=== PATIENT | female | born 1975 | race African-American/Black ===

== ENCOUNTER 2018-04-15 09:26 | Outpatient (CLI) | payer MEDICARE, MEDICAID ==
--- NOTE | 2018-04-15 11:11 | MRI ---
MRI LUMBAR SPINE WITHOUT CONTRAST: HISTORY: Spinal stenosis, lumbar region. COMPARISON: None. TECHNIQUE: MRI of the lumbar spine is performed without intravenous Gadolinium administration. Multisequential, multiplanar imaging is performed. FINDINGS: Appropriate T1 marrow signal intensity of the lumbar vertebrae. Vertebral body height is maintained. No fracture. There is mild STIR hyperintensity involving the left and right posterior elements at L5 which is presumed to be due to degenerative change/mechanical stresses. No spondylolisthesis or s pondylosis. Symmetric signal intensity of the psoas muscles. Appropriate signal intensity of the visualized laila d organs. Conus medullaris terminates at the inferior aspect of L1. T12-L1: Adequate disk hydration. No significant central canal stenosis or foraminal narrowing. L1-L2: Adequate disk hydration. No significant central canal stenosis or foraminal narrowing. L2-L3: Adequate disk hydration. No significant central canal stenosis. Neural foramen are patent. L3-L4: Adequate disk hydration. No significant central canal stenosis or foraminal narrowing. L4-L5: Adequate disk hydration. Minimal generalized disk bugle. There is ligamentum flavum thicken ing and facet hypertrophy. Minimal central canal stenosis. Neural foramina are patent bilaterally. L5-S1: Adequate disk hydration. No significant central canal stenosis. Foramina are patent bilater ally. There is mild degenerative change at T11-T12, incompletely evaluated. Based on the sagittal images, there is mild stenosis. IMPRESSION: No significant central canal stenosis or foraminal narrowing throughout the lumbar spine. Additional findings at T11-T12 as described above. POS: [facility]
== END 2018-04-15 09:27 | disposition home or self-care (01) ==
LOC: SCSMRI 09:26
PROVIDERS: ATTEND Orthopaedic Surgery Hand Surgery
DX: M48.061 Spinal stenosis, lumbar region without neurogenic claudication (principal); M47.894 Other spondylosis, thoracic region
CPT/HCPCS: 72148

== ENCOUNTER 2018-04-26 15:45 | Outpatient (CLI) | payer MEDICARE, MEDICAID ==
--- NOTE | 2018-04-26 18:11 | MRI ---
MRI OF BRAIN WITH AND WITHOUT IV CONTRAST: 04/26/18 HISTORY: Generalized pain all over body. History of fall. Systemic sclerosis. COMPARISON: CT head on 04/07/18. FINDINGS: No signal abnormalities are seen throughout the brain. There is no evidence of an acute infarction. N o abnormal areas of enhancement are seen after the administration of intravenous contrast. Septum pellucidum and third ventricle are in the midline. Ventricular system is normal in size, shape and position. Incidental note is made of an empty sella turcica. Grossly normal flow voids are demonstrated at the base of the brain. Minimal mucosal thickening is se en in the bilateral ethmoidal air cells and left sphenoid sinus. Orbits and skull base have a normal MRI appearance. There is decreased signal intensity within the region of the right petrous apex. Ther e is increased T2 weighted signal intensity present. Recent CT scan demonstrates pneumatization of th e petrous apex with evidence mucosal thickening in this region likely accounting for findings on MRI. The orbits and remainder of the skull base have a normal MRI appearance. IMPRESSION: 1. No acute intracranial abnormality is demonstrated. 2. Minimal sinus disease. POS: [facility]
== END 2018-04-26 15:46 | disposition home or self-care (01) ==
LOC: MRI 15:45
PROVIDERS: ATTEND Orthopaedic Surgery Hand Surgery
DX: M34.9 Systemic sclerosis, unspecified (principal); M48.02 Spinal stenosis, cervical region; J32.9 Chronic sinusitis, unspecified
CPT/HCPCS: 70553

== ENCOUNTER 2018-05-26 08:41 | Outpatient (CLI) | payer MEDICARE, MEDICAID ==
[2018-05-26 11:30] LABS: #Eosinphils 0.1 thou/uL (0.0-0.7); #Lymphocytes 2.6 thou/uL (1.20-3.40); #Monocytes 0.5 thou/uL (0.11-0.59); #Neutrophils 2.5 thou/uL (1.40-6.50); %Basophils 0.5 % (0.0-1.0); %Eosinophils 2.3 % (0.0-10.0); %Lymphocytes 45.4 % (21.0-51.0); %Monocytes 8.1 % (0.0-10.0); %Neutrophils 43.7 % (42.0-75.0); Hemoglobin 13.9 g/dL (12.0-16.0); Mean Corpuscular HGB CONC 33.2 g/dL (32.0-36.0); Mean Corpuscular Hemoglobin 28.4 pg (27.0-31.0); Mean Corpuscular Volume 85.4 fL (78.0-98.0); Mean Platelet Volume 6.4 fL (7.4-10.4); Platelet Count 323 thou/uL (130-400); White Blood Cell (WBC) Count 5.7 thou/uL (4.8-10.8)
[2018-05-26 11:46] LABS: Anion Gap 10 mmol/L (10-20); BUN (Urea Nitrogen) 10 mg/dL (7.0-18.7); Bilirubin Negative (Negative); Blood, Urine Negative (Negative); Calc. Creatinine Clearance 0 mL/min (70-130); Carbon Dioxide 25 mmol/L (22-29); Chloride 105 mmol/L (98-107); Clarity TURBID (Clear); Estimated GFR-MDRD 80; Glucose 92 mg/dL (70-105); Glucose, Urine (Dipstick) 500 mg/dL (Negative); Leukocyte Small (Negative); Nitrite Negative (Negative); Potassium 4.3 mmol/L (3.5-5.1); Protein, Urine (Dipstick) Trace mg/dL (Neg-Trace); Sodium 136 mmol/L (136-145); Specific Gravity, Urine 1.029 (1.002-1.036)
[2018-05-26 11:58] LABS: Bacteria/HPF 4+ HPF (None Seen); Hyaline Casts/LPF 7-10 HYALINE CAST LPF (0-3 Hyaline); Pathc Cast-AUWi Flag 1.77 (0-2.49); WBC/HPF 21-50 HPF (0-3)
--- NOTE | 2018-05-26 12:07 | RAD ---
PA AND LATERAL CHEST: History: Pre-operative evaluation. FINDINGS: Comparison is made with exam of 01-15-15. The heart size is borderline. The lungs are well expanded without lobar consolidation, pneumothorax, behzad edema or pleural effusions. Degenerative changes of the spine. IMPRESSION: No radiographic evidence of acute cardiopulmonary process. POS: [facility]
--- NOTE | 2018-05-27 06:12 | EKG ---
Test Reason : Blood Pressure : / mmHG Vent. Rate : 056 BPM Atrial Rate : 056 BPM P-R Int : 208 ms QRS Dur : 094 ms QT Int : 414 ms P-R-T Axes : 013 -62 -08 degrees QTc Int : 399 ms Sinus bradycardia Left axis deviation Low voltage QRS Cannot rule out Anterior infarct , age undetermined Abnormal ECG When compared with ECG of 31-AUG-2015 16:00, Minimal criteria for Anterior infarct are now Present Confirmed by MEKHI ONEAL ([id number]) on 05/27/2018 6:12:39 AM Referred By: SAMREEN Confirmed By:MEKHI ONEAL
== END 2018-05-26 08:42 | disposition home or self-care (01) ==
LOC: LABBT 08:41
PROVIDERS: ATTEND Orthopaedic Surgery Hand Surgery
DX: Z01.818 Encounter for other preprocedural examination (principal); G56.02 Carpal tunnel syndrome, left upper limb; G56.22 Lesion of ulnar nerve, left upper limb
CPT/HCPCS: 71046; 80048; 81001; 85025; 93005; 93010

== ENCOUNTER 2018-06-17 11:54 | Day surgery (SDC) | payer MEDICARE, MEDICAID ==
[2018-06-16 15:40] VITALS: BMI 38.2
[2018-06-17] MEDS ORDERED: Fentanyl 100 MCG/2 ML VIAL ONE (12:29)
[2018-06-17] MEDS ORDERED: Midazolam HCl 2 mg/2 ml Vial ONE (12:29)
[2018-06-17] MEDS ORDERED: Lidocaine 1% (PF) 30 ML VIAL ONE (12:30)
[2018-06-17] MEDS ORDERED: Dexamethasone 4 mg/ml Vial ONE (12:30)
--- NOTE | 2018-06-17 12:34 | RAD ---
PORTABLE AP CHEST X-RAY: 06/17/2018 HISTORY: Preoperative evaluation. COMPARISON: 05/26/2018 FINDINGS: The cardiac silhouette and pulmonary vasculature are within normal limits. The lungs remain clear. There has been no interval change from the prior study. IMPRESSION: No acute cardiopulmonary process. POS: [facility]
[2018-06-17] MEDS ORDERED: Betamet Acet/Betamet Na Ph 30 MG/5 ML VIAL ONE ×2 (12:41→14:20)
[2018-06-17] MEDS ORDERED: Sodium Chloride 0.9% 10 ML ONE (12:41)
[2018-06-17] MEDS ORDERED: Bupivacaine PF 0.5% 30 ML VIAL ONE (12:41)
[2018-06-17] MEDS ORDERED: Bacitracin Zinc Ointment 30 gm TUBE ONE (12:41)
[2018-06-17 12:45] LABS: #Lymphocytes 2.2 thou/uL (1.20-3.40); #Monocytes 0.5 thou/uL (0.11-0.59); #Neutrophils 2.4 thou/uL (1.40-6.50); %Basophils 0.8 % (0.0-1.0); %Eosinophils 0.6 % (0.0-10.0); %Monocytes 9.3 % (0.0-10.0); %Neutrophils 46.3 % (42.0-75.0); Hemoglobin 14.6 g/dL (12.0-16.0); Mean Corpuscular HGB CONC 33.2 g/dL (32.0-36.0); Mean Corpuscular Hemoglobin 27.8 pg (27.0-31.0); Mean Corpuscular Volume 83.8 fL (78.0-98.0); Mean Platelet Volume 6.3 fL (7.4-10.4); Platelet Count 305 thou/uL (130-400); RBC Distribution Width 13.3 % (11.5-14.5); Red Blood Cell (RBC) Count 5.26 mill/uL (4.20-5.40); White Blood Cell (WBC) Count 5.1 thou/uL (4.8-10.8)
[2018-06-17] MEDS ORDERED: CEFAZOLIN/Water 2 GM/20 ML SYRINGE ONE (12:58)
[2018-06-17 13:02] LABS: Anion Gap 12 mmol/L (10-20); BUN (Urea Nitrogen) 9 mg/dL (7.0-18.7); Calc. Creatinine Clearance 118 mL/min (70-130); Calcium 9.2 mg/dL (7.8-10.44); Carbon Dioxide 25 mmol/L (22-29); Chloride 105 mmol/L (98-107); Estimated GFR-MDRD 75; Glucose 98 mg/dL (70-105); Potassium 3.2 mmol/L (3.5-5.1); Sodium 139 mmol/L (136-145)
[2018-06-17] MEDS ORDERED: HYDROmorphone 2 MG/ML VIAL ONE (13:06)
[2018-06-17] MEDS ORDERED: Bupivacaine HCl 0.5%/Epinephrine 1:200,000/PF 30 ml Vial ONE (13:53)
[2018-06-17] MEDS ORDERED: Dexamethasone 20 MG/5 ML VIAL ONE (14:07)
[2018-06-17] MEDS ORDERED: Lidocaine 1% PF 5 ML VIAL ONE (14:07)
[2018-06-17] MEDS ORDERED: PROPOFOL 200 MG/20 ML VIAL ONE (14:07)
[2018-06-17] MEDS ORDERED: Ondansetron HCl/PF 4 MG/2 ML Vial ONE (14:07)
[2018-06-17] MEDS ORDERED: Ketorolac Tromethamine 30 MG/ML VIAL ONE ×2 (14:07→16:44)
--- NOTE | 2018-06-17 16:19 | EKG ---
Test Reason : PREOP Blood Pressure : / mmHG Vent. Rate : 064 BPM Atrial Rate : 064 BPM P-R Int : 208 ms QRS Dur : 096 ms QT Int : 432 ms P-R-T Axes : 036 -51 017 degrees QTc Int : 445 ms Normal sinus rhythm Left axis deviation NST wave abnormality Abnormal ECG When compared with ECG of 26-MAY-2018 10:27, Minimal criteria for Anterior infarct are no longer Present Confirmed by DR. Wendy ANSARI ([id number]) on 06/17/2018 4:19:31 PM Referred By: SAMREEN Confirmed By:DR. Wendy ANSARI
--- NOTE | 2018-06-20 15:15 | OP ---
DATE OF PROCEDURE: 06/17/2018 PREOPERATIVE DIAGNOSES: 1. Cubital tunnel, left. 2. Carpal tunnel, left. 3. Guyon level ulnar nerve compression finding, compression of ulnar nerve, mild, Guyon canal to minimal compression of the median nerve within carpal tunnel, severe flattening of the ulnar nerve over 3.5 cm segment beginning just distal to the intermuscular septum, going underneath the entry an d inside the [place] cubital tunnel. PROCEDURES PERFORMED: 1. Ulnar nerve neuroplasty at the wrist/Guyon's canal release. 2. Median nerve neuroplasty at the wrist/carpal tunnel release. 3. Ulnar nerve transposition with neuroplasty release, submuscular/sublipotamous out of its old bed, left elbow level. TOURNIQUET TIME: Total 85 minutes. SPECIMEN REMOVED: An 8 cm long x 1.5 cm wide section of the intermuscular septum without neurovascul ar damage. ANESTHESIA: General LMA technique augmented by preoperative excellent interscalene block. DESCRIPTION OF PROCEDURE: After successful general LMA technique, the limb was prepped and draped. The patient then had timeout done appropriately. A sterile tourniquet had been applied. We exsanguinated the limb, inflated tourniquet to 250 mmHg pressure then had a J-shaped incision begi nning 3 cm proximal to the pisiform in line with the flexor carpal ulnaris, coursing parallel to the volar flexion crease until we reached a point in line with the ring finger where it went across the w rist in line and curved towards the ring finger to expose both the carpal tunnel and the Guyon's noa l. We then entered this incision gently, completely using the Prentiss blade to undermine the large sk in flaps radially and then beginning 3 cm proximal pisiform, identified the ulnar neurovascular bundle. There were two tight each about 4 mm wide causing compression ulnar nerve with entry to the Guyon's canal, we then unroofed base of Guyon's canal and followed the nerve until it diverse d and there were no masses seen. We then protected the ulnar artery. We then identified the [place] carpal tunnel and which was only 5 mm of radial to the most radial edge of the ulna artery, but we protected the artery and did a transverse carpal ligament release/carpal tunnel release. The median nerve had minimal stippling over 4-5 mm area without hourglass formation, but was now free. We placed 5 mL of Celestone along the course of thes two nerves, deflated the mirlande rniquet, obtained hemostasis then closed the wound with interrupted 4-0 nylon alternating between sim ple and a mattress horizontal pattern. The patient then had the limb re-exsanguinated, tourniquet was inflated to 250 mmHg pressure using a sterile tourniquet outline a midline incision to approach the elbow. This carried through the skin a nd subcutaneous tissue and then dissected more medial than lateral to create large skin flaps with ea se, which is easier because the patient has large amount of free adipose tissue. We then identified the ulnar nerve, beginning approximately 15 cm proximal to the medial epicondyle, freed it from the t riceps muscle, saw where we initially started to become very compressed in the intermuscular septum a nd then released it here. We then found it was most flat within the cubital tunnel, so releasing wit hin the cubital tunnel became tortuous, because it was so flat we did not want to cause further damag e, but we were very careful using the help of very experienced optometry assistant today. Gregory. The patient then had all bands taken off the ulnar nerve, the two heads of the flexor released, we re leased and deep inside the fascia over the flexor, distal to the bifurcation of the heads and the sep aration of the primary motor fibers through these two heads. At this point, we had created a large a dipose of flap, and that was almost 3 cm wide, freed the ulnar nerve vision all the way around circum ferentially throughout the entire exposed area, so it could be transposed 2.5 cm anterior from its no rmal bed get it out of the medial epicondyle area. Before we did this, we removed the entire medial intermuscular septum for an area up to 9 cm proximal to the medial epicondyle as one block. The nerv e could now be placed without undue tension from any soft tissue and we maintained one of the arteria l that had comminuted that was seen with the nerve upon initial evaluation. We placed Celeston e around this, closed the fat back to the remnant of the medial epicondyle, pericondylar soft tissue with an interrupted [id number] #1 Ethibond OS-4 needle. Then, we noticed that the nerve was casmiiro e to move within the pouch created by this, did not have any evidence of subluxation with elbow flexi on and extension range. The patient had the tourniquet deflated. Hemostasis obtained. The incision was then closed with a r unning 3-0 undyed Monocryl and the epidermis were closed with interrupted 4-0 nylon in a mattress hor izontal pattern. Bulky dressing was applied, long arm splint. The patient left the operating room w ithout evidence of anesthetic or operative complication.
== END 2018-06-17 17:15 | disposition home or self-care (01) ==
LOC: SDC 11:54
PROVIDERS: ATTEND Orthopaedic Surgery Hand Surgery
PROC: 01N50ZZ Release Median Nerve, Open Approach (ICD-10-PCS; principal; 2018-06-17)
PROC: 01N40ZZ Release Ulnar Nerve, Open Approach (ICD-10-PCS; 2018-06-17)
PROC: 01S40ZZ Reposition Ulnar Nerve, Open Approach (ICD-10-PCS; 2018-06-17)
DX: G56.22 Lesion of ulnar nerve, left upper limb (principal); G56.02 Carpal tunnel syndrome, left upper limb; I10 Essential (primary) hypertension; F32.9 Major depressive disorder, single episode, unspecified; M19.90 Unspecified osteoarthritis, unspecified site; G90.50 Complex regional pain syndrome I, unspecified; E11.42 Type 2 diabetes mellitus with diabetic polyneuropathy; M48.02 Spinal stenosis, cervical region; Q06.8 Other specified congenital malformations of spinal cord; Z79.84 Long term (current) use of oral hypoglycemic drugs; Z79.51 Long term (current) use of inhaled steroids; Z79.891 Long term (current) use of opiate analgesic; Z79.899 Other long term (current) drug therapy; Z88.5 Allergy status to narcotic agent; Z88.8 Allergy status to other drugs, medicaments and biological substances
CPT/HCPCS: 36415; 71045; 80048; 84702; 85025; 93005; 93010; A4216; J0670; J0702; J1100; J1170; J1885; J2001; J2250; J2405; J2704; J3010; J3490; S0020

== ENCOUNTER 2018-08-23 10:51 | Outpatient (CLI) | payer MEDICARE, MEDICAID | END 2018-08-23 10:52 | disposition home or self-care (01) | LOC: CTENTCT 10:51 | PROVIDERS: ATTEND Otolaryngology Plastic Surgery within the Head & Neck | DX: J01.91 Acute recurrent sinusitis, unspecified (principal) | CPT/HCPCS: 70486 ==

== ENCOUNTER 2019-03-14 10:41 | Outpatient (CLI) | payer MEDICARE, MEDICAID ==
--- NOTE | 2019-03-14 11:45 | MRI ---
MRI Cervical Spine WO Con History: [M a 47.0 to cervical stenosis] Comparison: MRI cervical spine 2017 Findings: Cerebral tonsils terminate at level of the foramen magnum. Cord signal appears normal. Paraspinal musculature is normal. No prevertebral hematoma. No marrow infiltrative process. 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 Levels are as follows: C2/C3: Mild left uncinate process hypertrophy and small left lateral recess posterior disc osteophyte complex. Mild left neural foraminal narrowing. C3/C4: Mild disc desiccation. Mild uncinate process hypertrophy. No neural foraminal or spinal canal narrowing. Moderate left facet arthropathy. C4/C5: Mild disc desiccation. Low-grade circumferential disc osteophyte complex. Minimal effacement o f the ventral CSF space. Spinal canal is not significantly narrowed. No significant neural foraminal narrowing. C5/6: Circumferential disc osteophyte complex, small. Mild effacement of ventral CSF space. No signif icant spinal canal narrowing. No neural foraminal narrowing. Mild right facet arthropathy. C6/C7: Broad-based posterior disc osteophyte complex. Mild ligament flavum hypertrophy. Mild effaceme nt of ventral CSF space. Spinal canal not significantly narrowed. Mild bilateral facet arthropathy. No significant neural foraminal narrowing. C7/T1: Normal disc. No neural foraminal spinal canal narrowing. At T1/T2 there appears to be a right paracentral and lateral recess as well as of foraminal disc prot rusion. At T3/T4 there also appears be a right paracentral and lateral recess posterior disc protrusion incompletely evaluated on this exam. Thoracic spine MR may be beneficial. Impression: Low-grade degenerative changes of the cervical spine. Thoracic spine MRI may be beneficia l if there appears to be disc protrusions at T1/T2 and T3/T4.
== END 2019-03-14 10:42 | disposition home or self-care (01) ==
LOC: BICMRI 10:41
PROVIDERS: ATTEND Psychiatry & Neurology Neurology
DX: M48.02 Spinal stenosis, cervical region (principal); M47.812 Spondylosis without myelopathy or radiculopathy, cervical region
CPT/HCPCS: 72141

== ENCOUNTER 2019-11-29 06:40 | Outpatient (CLI) | payer MEDICARE, MEDICAID ==
[2019-11-29 11:55] LABS: Hemoglobin 13.8 g/dL (12.0-16.0); Mean Corpuscular Volume 87.4 fL (78.0-98.0); Mean Platelet Volume 7.2 fL (7.4-10.4); Platelet Count 315 thou/uL (130-400); RBC Distribution Width 14.2 % (11.5-14.5); Red Blood Cell (RBC) Count 4.91 mill/uL (4.20-5.40); White Blood Cell (WBC) Count 4.6 thou/uL (4.8-10.8)
[2019-11-29 12:00] LABS: Bacteria/HPF None Seen HPF (None Seen); Bilirubin Negative (Negative); Blood, Urine Negative (Negative); Clarity Clear (Clear); Glucose, Urine (Dipstick) Greater than 1000 mg/dL (Negative); Leukocyte Negative Leu/uL (Negative); Nitrite Negative (Negative); Protein, Urine (Dipstick) 10 mg/dL (Neg-Trace); RBC/HPF 0-3 HPF (0-3); Squamous Epithelial 0-3 HPF (0-3); WBC/HPF 0-3 HPF (0-3)
[2019-11-29 12:29] LABS: Anion Gap 12 mmol/L (10-20); BUN (Urea Nitrogen) 7 mg/dL (7.0-18.7); Calc. Creatinine Clearance 0 mL/min (70-130); Calcium 8.8 mg/dL (7.8-10.44); Carbon Dioxide 29 mmol/L (22-29); Chloride 104 mmol/L (98-107); Estimated GFR-MDRD 78; Glucose 89 mg/dL (70-105); Potassium 4.3 mmol/L (3.5-5.1); Sodium 141 mmol/L (136-145)
== END 2019-11-29 06:41 | disposition home or self-care (01) ==
LOC: LABBT 06:40
PROVIDERS: ATTEND Orthopaedic Surgery Hand Surgery
DX: Z01.812 Encounter for preprocedural laboratory examination (principal); S62.636A Displaced fracture of distal phalanx of right little finger, initial encounter for closed fracture
CPT/HCPCS: 80048; 81001; 85027

== ENCOUNTER 2019-12-04 12:07 | Day surgery (SDC) | payer MEDICARE, MEDICAID ==
[2019-11-29 10:27] VITALS: BMI 42.5
[~2019-12-04 12:07] MED LIST: Ketorolac Tromethamine 30 MG/ML VIAL ONE; Lidocaine 1% PF 5 ML VIAL ONE; Ondansetron PF 4 MG/2 ML Vial ONE; PROPOFOL 200 MG/20 ML VIAL ONE
[2019-12-04] MEDS ORDERED: Bupivacaine PF 0.5% 30 ML VIAL ONE (13:18)
[2019-12-04] MEDS ORDERED: Bacitracin Zinc Ointment 30 gm TUBE ONE ×2 (13:18→14:38)
[2019-12-04] MEDS ORDERED: Betamet Acet/Betamet Na Ph 30 MG/5 ML VIAL ONE (13:18)
[2019-12-04] MEDS ORDERED: Fentanyl 100 MCG/2 ML VIAL ONE (14:00)
--- NOTE | 2019-12-04 16:03 | RAD ---
EXAM: 3 views of the right small finger finger HISTORY: Fracture of the distal phalanx of the small finger COMPARISON: 09/23/2019 FINDINGS: Multiple limited intraoperative fluoroscopic views show 2 K wires spanning the fracture of the distal phalanx of the small finger. No soft tissue swelling is seen. No degenerative changes are present. IMPRESSION: Status post ORIF of distal phalanx fracture.
[2019-12-04] MEDS ORDERED: HYDROcodone/Acetaminophen 5/325 mg Tablet ONE ×2 (16:57→17:07)
--- NOTE | 2019-12-05 10:30 | OP ---
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 PROCEDURES PERFORMED: 1. Open reduction and internal fixation of distal phalanx fracture/early nonunion. 2. Debridement of material of fracture. 3. Application of putty, 0.5 mL Synthes bone putty to fill the palmar defect. INDICATIONS FOR PROCEDURE: The patient is now over two months since injury, had pain, but did not seek medical attention. Although the pain decreased, she noticed the finger would "flop." She presented to the office with a gap of approximately 3.5 mm and an oblique fracture in the sagittal plane and displaced slightly oblique fracture in frontal plane. DESCRIPTION OF PROCEDURE: After successful general endotracheal anesthesia, the limb was prepped and draped. The patient then underwent injection with a total of 15 mL of 0.5% Marcaine metacarpophalangeal joint level block. C-arm was brought into field, already prepped and draped. We made several attempts to perform closed reduction, but it appeared that something might be in the fracture. For this reason, we made an incision, palmar beginning 5 mm proximal to the distal interphalangeal joint crease on its ulnar side and carried through skin and subcutaneous tissue. We identified all neurovascular bundle and protected. Using the C-arm marker, we determined the fracture was distal to the flexor insertion and just distal to insertion, we found the fracture line. There was marked amount of fibrous tissue, but it was asymmetrical and the palmar loss was greater than the dorsal. We maintained a bone edge in dorsal one-third after debridement with a curette and a [place] blade. We then reduced it, leaving a palmar gap but the dorsal contact was seen visibly. We held this with three K-wires of 0.5, which impacted the fracture. We then filled in the palmar defect with synthetic putty from [employer]. The patient then had the tourniquet deflated. Hemostasis was obtained. The digit was pink. The digital nerve was grossly protected and intact. We closed the wound with interrupted 5-0 nylon in simple pattern, and the patient then left the operating room without evidence of anesthetic or operative complication. Job ID: [id number]
== END 2019-12-04 17:40 | disposition home or self-care (01) ==
LOC: SDC 12:07
PROVIDERS: ATTEND Orthopaedic Surgery Hand Surgery
PROC: 0PST04Z Reposition Right Finger Phalanx with Internal Fixation Device, Open Approach (ICD-10-PCS; principal; 2019-12-04)
DX: S62.636A Displaced fracture of distal phalanx of right little finger, initial encounter for closed fracture (principal); I10 Essential (primary) hypertension; E11.9 Type 2 diabetes mellitus without complications; F32.9 Major depressive disorder, single episode, unspecified; M19.90 Unspecified osteoarthritis, unspecified site; Z79.899 Other long term (current) drug therapy; Z88.5 Allergy status to narcotic agent; Z88.6 Allergy status to analgesic agent; Z88.8 Allergy status to other drugs, medicaments and biological substances; X58.XXXA Exposure to other specified factors, initial encounter
CPT/HCPCS: 76000; J0690; J0702; J1885; J2001; J2405; J2704; J3010; J3490; S0020

== ENCOUNTER 2020-03-08 | Outpatient (CLI) | payer MEDICARE, MEDICAID, OTHER | END 2020-03-08 06:48 | disposition home or self-care (01) | DX: Z01.812 Encounter for preprocedural laboratory examination (principal); Z11.59 Encounter for screening for other viral diseases; S62.606D Fracture of unspecified phalanx of right little finger, subsequent encounter for fracture with routine healing; T84.84XD Pain due to internal orthopedic prosthetic devices, implants and grafts, subsequent encounter ==

== ENCOUNTER 2020-03-11 14:03 | Day surgery (SDC) | payer MEDICARE, MEDICAID ==
[~2020-03-11 14:03] MED LIST changes: +Dexamethasone 20 MG/5 ML VIAL ONE; -Ketorolac Tromethamine 30 MG/ML VIAL ONE; +Metoclopramide HCl 10 MG/2 ML VIAL ONE
[2020-03-11] MEDS ORDERED: Bupivacaine PF 0.5% 30 ML VIAL ONE (15:11)
[2020-03-11] MEDS ORDERED: Betamet Acet/Betamet Na Ph 30 MG/5 ML VIAL ONE (15:11)
[2020-03-11] MEDS ORDERED: Bacitracin Zinc Ointment 30 gm TUBE ONE (15:12)
[2020-03-11] MEDS ORDERED: Fentanyl 100 MCG/2 ML VIAL ONE ×2 (15:28→17:06)
[2020-03-11] MEDS ORDERED: Ketamine 50 MG/ML (10ML VIAL) ONE (15:43)
[2020-03-11] MEDS ORDERED: Ketorolac Tromethamine 30 MG/ML VIAL ONE (16:52)
--- NOTE | 2020-03-11 17:08 | RAD ---
EXAM: RIGHT FIFTH FINGER TWO VIEWS: Portable fluoroscopic spot images presented for interpretation. FINDINGS: Two small caliber Stymen pins have been removed from the distal phalanx of the fifth finger with imag ed documentation intraoperatively. IMPRESSION: Removal of two small caliber Stymen pins from the distal phalanx of the fifth finger. POS: [facility]
--- NOTE | 2020-03-12 08:18 | OP ---
DATE OF PROCEDURE: 03/11/2020 PREOPERATIVE DIAGNOSES: Healed fracture with missing chondral bone, right small finger distal phalanx. FINDINGS: Distal phalanx fracture, sagittal plane 50% displaced, frontal plane not displaced, but with a 50% bridge intact and healing, stable with stress in the frontal sagittal plane. PROCEDURE PERFORMED: 1. Removal of K-wires deep under general anesthesia. 2. C-arm fluoroscopy including stress views in frontal sagittal plane. TOURNIQUET TIME: 6 minutes. BLOOD LOSS: Less than or equal to 5 mL. INJECTABLE: Yes, 10 mL of 0.5% Marcaine metacarpophalangeal joint block level. Again, findings of fracture stable, small finger distal phalanx with stress views under fluoro after wires removed. INDICATIONS FOR PROCEDURE: The patient had complained of marked pain in area of wires, but they were still over 3 mm deep and could not be easily removed in the clinic, especially in the fact the patient is on chronic pain medicine from a pain doctor. For this reason, because on lateral plain radiographs, approximately 50% of the shaft width is displaced, but appeared to have a bony bridge, could not be certain it would be stable enough to completely remove the K-wires without restabilizing the fracture with other K-wires from different approach. DESCRIPTION OF PROCEDURE: After successful general LMA technique, the limb was prepped and draped. She also then had time-out done appropriately. We injected with 10 mL of 0.5% Marcaine without epinephrine at the metacarpophalangeal joint block level. We then exsanguinated the limb, inflated the tourniquet to 250 mmHg pressure, then brought the C-arm to the field. Under C-arm guidance, we were able to find the wires, make only a 2-mm incision, dissected down to the wires, removed them. Once both K-wires were removed, we then did C-arm fluoroscopy, and here, we saw the fracture appeared to be healed, and when we stressed it frontal sagittal view using the instrumentation, there was no gross motion. Thus, we felt that the bony bridge although only approximately 50% of the cortical width in sagittal plane was adequate for activity. The patient had tourniquet deflated. We irrigated the small wound and closed with 2 interrupted 5-0 chromic sutures with a short knot. Then, we placed a bacitracin, Adaptic, one 4x4, a finger tube gauze, and then connected this to Matthew wrap around the wrist, holding both in place with a small 2-inch Coban. She left the operating room without evidence of anesthetic or operative complication. Job ID: [id number]
== END 2020-03-11 18:25 | disposition home or self-care (01) ==
LOC: SDC 14:03
PROVIDERS: ATTEND Orthopaedic Surgery Hand Surgery
PROC: 0RPW0JZ Removal of Synthetic Substitute from Right Finger Phalangeal Joint, Open Approach (ICD-10-PCS; principal; 2020-03-11)
DX: T84.84XA Pain due to internal orthopedic prosthetic devices, implants and grafts, initial encounter (principal); E11.9 Type 2 diabetes mellitus without complications; I10 Essential (primary) hypertension; G90.50 Complex regional pain syndrome I, unspecified; F32.9 Major depressive disorder, single episode, unspecified; F17.210 Nicotine dependence, cigarettes, uncomplicated; Z79.1 Long term (current) use of non-steroidal anti-inflammatories (NSAID); Z79.84 Long term (current) use of oral hypoglycemic drugs; Z79.891 Long term (current) use of opiate analgesic; Z79.899 Other long term (current) drug therapy; Z88.5 Allergy status to narcotic agent; Z88.6 Allergy status to analgesic agent; Z88.8 Allergy status to other drugs, medicaments and biological substances
CPT/HCPCS: 76000; J0690; J0702; J1885; J3010; S0020

== ENCOUNTER 2020-09-09 08:53 | Outpatient (CLI) | payer MEDICARE, OTHER | END 2020-09-09 08:54 | disposition home or self-care (01) | LOC: DTY/OP 08:53 | PROVIDERS: ATTEND Surgery | DX: E11.9 Type 2 diabetes mellitus without complications (principal) | CPT/HCPCS: 97802 ==

== ENCOUNTER 2022-01-28 10:30 | Inpatient (IN) | payer MEDICARE, MEDICAID ==
[2022-01-28 11:57] VITALS: BMI 42.0
[2022-02-02] MEDS ORDERED: Scopolamine 1.5 mg/72 hour Patch ONE (08:29)
[2022-02-02] MEDS ORDERED: Enoxaparin Sodium 40 MG/0.4 ML SYRINGE ONE (08:30)
[2022-02-02] MEDS ORDERED: Bupivacaine PF 0.5% 30 ML VIAL ONE (09:17)
[2022-02-02] MEDS ORDERED: Lidocaine 1% w/Epinephrine 1:100K 20 ML VIAL ONE (09:17)
[2022-02-02] MEDS ORDERED: HYDROmorphone 0.5 MG/0.5 ML SYRINGE ONE (09:22)
[2022-02-02] MEDS ORDERED: Fentanyl 250 MCG/5 ML VIAL ONE (09:22)
[2022-02-02] MEDS ORDERED: Ketamine 50 MG/ML (10ML VIAL) ONE (09:22)
[2022-02-02] MEDS ORDERED: SUGAMMADEX SODIUM 200 MG/2 ML VIAL ONE (09:31)
[2022-02-02] MEDS ORDERED: Midazolam HCl 2 mg/2 ml Vial ONE (09:31)
[2022-02-02] MEDS ORDERED: cefOXitin 2 GM VIAL ONE ×3 (09:31→13:33)
[2022-02-02] MEDS ORDERED: Sodium Chloride 0.9% 100 ML ONE (09:31)
[2022-02-02] MEDS ORDERED: PROPOFOL 200 MG/20 ML VIAL ONE (09:38)
[2022-02-02] MEDS ORDERED: Ketorolac Tromethamine 30 MG/ML VIAL ONE (09:38)
[2022-02-02] MEDS ORDERED: Dexamethasone 20 MG/5 ML VIAL ONE (09:38)
[2022-02-02] MEDS ORDERED: PHENYLEPHRINE-NS 100 MCG/ML 10 ML SYRINGE ONE (09:38)
[2022-02-02] MEDS ORDERED: Lidocaine 1% PF 5 ML VIAL ONE (09:38)
[2022-02-02] MEDS ORDERED: Ondansetron PF 4 MG/2 ML Vial ONE (09:38)
[2022-02-02] MEDS ORDERED: Rocuronium Bromide 10 MG/ML (10ML VIAL) ONE (09:38)
[2022-02-02] MEDS ORDERED: hydrALAZINE 20 MG/ML VIAL SLOW IVP PRN (09:42)
[2022-02-02] MEDS ORDERED: Ondansetron PF 4 MG/2 ML Vial IVP PRN (09:42)
[2022-02-02] MEDS ORDERED: Promethazine HCl 25 MG/ML VIAL IM PRN (09:42)
[2022-02-02] MEDS ORDERED: Dextrose 50% Abboject 50 ML SYRINGE SLOW IVP PRN (09:42)
[2022-02-02] MEDS ORDERED: diphenhydrAMINE 50 MG/ML VIAL IVP PRN (09:42)
[2022-02-02] MEDS ORDERED: Dextrose 5% in Water 1,000 ML IV PRN (09:42)
[2022-02-02] MEDS ORDERED: HumaLOG 300 UNITS/3 ML VIAL SC PRN (09:42)
[2022-02-02] MEDS ORDERED: HYDROmorphone 2 MG/ML VIAL SLOW IVP PRN (14:19)
[2022-02-02] MEDS ORDERED: Meperidine HCl/PF 25 MG/ML VIAL SLOW IVP PRN (14:19)
[2022-02-02] MEDS ORDERED: Ondansetron HCl/PF 4 MG/2 ML Vial IVP PRN (14:19)
[2022-02-02] MEDS ORDERED: Promethazine HCl 25 MG/ML VIAL IVPB PRN (14:19)
[2022-02-02] MEDS ORDERED: Fentanyl 100 MCG/2 ML VIAL ONE ×2 (14:36→15:09)
[2022-02-02] MEDS ORDERED: Non-Formulary Item 1 EACH (Dextroamphetamine/Amphetamine [Adderall] 30 MG Tablet) PO SCH (15:00)
[2022-02-02] MEDS ORDERED: hydrALAZINE 20 MG/ML VIAL ONE (15:30)
[2022-02-02] MEDS ORDERED: Labetalol HCl 100 MG/20 ML VIAL ONE (15:52)
[2022-02-02] MEDS: Ketorolac Tromethamine 30 MG/ML VIAL IVP SCH ×2 (16:01→18:01)
[2022-02-02] MEDS: D5 1/2 NS w/20 mEq KCL 1,000 ML IV SCH ×2 (16:15→16:16)
[2022-02-02] MEDS: Gabapentin 400 MG CAP PO SCH ×2 (16:16→20:06)
[2022-02-02] MEDS: Baclofen 10 MG TAB PO SCH ×2 (16:16→20:06)
[2022-02-02] MEDS: rOPINIRole HCl 2 MG TAB PO SCH ×2 (16:16→20:06)
[2022-02-02] MEDS: Morphine 2 MG/ML VIAL SLOW IVP PRN ×2 (18:02→22:13)
[2022-02-02] MEDS: Hydrocodone-Acetamin 15 ML UDCUP PO PRN (20:05)
[2022-02-03] MEDS: Hydrocodone-Acetamin 15 ML UDCUP PO PRN ×4 (04:39→12:27)
[2022-02-03] MEDS: Ketorolac Tromethamine 30 MG/ML VIAL IVP SCH ×3 (05:10→11:05)
[2022-02-03 06:34] LABS: #Lymphocytes 1.9 thou/uL (1.20-3.40); #Monocytes 0.6 thou/uL (0.11-0.59); #Neutrophils 7.5 thou/uL (1.40-6.50); %Basophils 0.2 % (0.0-1.0); %Eosinophils 0.4 % (0.0-10.0); %Lymphocytes 18.7 % (21.0-51.0); %Monocytes 6.1 % (0.0-10.0); %Neutrophils 74.5 % (42.0-75.0); Hemoglobin 12.7 g/dL (12.0-16.0); Mean Corpuscular HGB CONC 32.1 g/dL (32.0-36.0); Mean Corpuscular Volume 90.3 fL (78.0-98.0); Mean Platelet Volume 6.2 fL (7.4-10.4); Platelet Count 337 thou/uL (130-400); RBC Distribution Width 12.8 % (11.5-14.5); Red Blood Cell (RBC) Count 4.37 mill/uL (4.20-5.40); White Blood Cell (WBC) Count 10.1 thou/uL (4.8-10.8)
[2022-02-03 06:52] LABS: Anion Gap 13 mmol/L (10-20); BUN (Urea Nitrogen) 13 mg/dL (7.0-18.7); Calc. Creatinine Clearance 117 mL/min (70-130); Calcium 8.6 mg/dL (7.8-10.44); Carbon Dioxide 24 mmol/L (22-29); Chloride 102 mmol/L (98-107); Glucose 99 mg/dL (70-105); Potassium 4.1 mmol/L (3.5-5.1); Sodium 135 mmol/L (136-145)
[2022-02-03] MEDS: Baclofen 10 MG TAB PO SCH ×2 (08:33→14:19)
[2022-02-03] MEDS: Gabapentin 400 MG CAP PO SCH ×2 (08:33→14:19)
[2022-02-03] MEDS: rOPINIRole HCl 2 MG TAB PO SCH ×2 (08:34→14:19)
[2022-02-03] MEDS: D5 1/2 NS w/20 mEq KCL 1,000 ML IV SCH ×2 (08:55)
[2022-02-03] MEDS ORDERED: Enoxaparin Sodium 40 MG/0.4 ML SYRINGE SC SCH (09:00)
[2022-02-03] MEDS ORDERED: Levothyroxine 150 MCG TAB PO SCH (09:00)
[2022-02-03] MEDS ORDERED: Pantoprazole 40 MG VIAL IVP SCH (09:00)
[2022-02-03 11:55] VITALS: BP 132/89; TEMP 98.6
[2022-02-03] MEDS ORDERED: ALPRAZolam 1 MG TAB PO SCH (12:15)
== END 2022-02-03 16:15 | disposition home or self-care (01) | DRG 621 ==
LOC: SURG A 02-02 08:21
PROVIDERS: ADMIT Surgery; ATTEND Surgery
PROC: 0D164ZA Bypass Stomach to Jejunum, Percutaneous Endoscopic Approach (ICD-10-PCS; principal; 2022-02-02)
PROC: 0BQT4ZZ Repair Diaphragm, Percutaneous Endoscopic Approach (ICD-10-PCS; 2022-02-02)
PROC: 8E0W4CZ Robotic Assisted Procedure of Trunk Region, Percutaneous Endoscopic Approach (ICD-10-PCS; 2022-02-02)
PROC: 0DJ08ZZ Inspection of Upper Intestinal Tract, Via Natural or Artificial Opening Endoscopic (ICD-10-PCS; 2022-02-02)
DX: E66.01 Morbid (severe) obesity due to excess calories (principal); E88.81 Metabolic syndrome and other insulin resistance; Z68.42 Body mass index [BMI] 45.0-49.9, adult; K21.9 Gastro-esophageal reflux disease without esophagitis; K44.9 Diaphragmatic hernia without obstruction or gangrene; I10 Essential (primary) hypertension; E78.5 Hyperlipidemia, unspecified; E55.9 Vitamin D deficiency, unspecified; F32.A Depression, unspecified; G47.33 Obstructive sleep apnea (adult) (pediatric); E11.42 Type 2 diabetes mellitus with diabetic polyneuropathy; M17.0 Bilateral primary osteoarthritis of knee; M54.50 Low back pain, unspecified; G89.4 Chronic pain syndrome; K43.9 Ventral hernia without obstruction or gangrene; Z79.899 Other long term (current) drug therapy; Z79.890 Hormone replacement therapy; Z88.8 Allergy status to other drugs, medicaments and biological substances; Z90.710 Acquired absence of both cervix and uterus; Z83.3 Family history of diabetes mellitus; Z82.49 Family history of ischemic heart disease and other diseases of the circulatory system; Z82.0 Family history of epilepsy and other diseases of the nervous system; Z82.3 Family history of stroke; Z87.891 Personal history of nicotine dependence; Z79.4 Long term (current) use of insulin; Z88.5 Allergy status to narcotic agent; Z88.6 Allergy status to analgesic agent; Z91.040 Latex allergy status
CPT/HCPCS: 36415; 36416; 80048; 85025; C9113; J0360; J0694; J1100; J1170; J1650; J1885; J2250; J2270; J2405; J2704; J3010; J3480; J3490; S0020

== ENCOUNTER 2022-02-04 17:40 | Emergency (ER) | payer MEDICARE, MEDICAID ==
[~2022-02-04 17:40] MED LIST changes: -Dexamethasone 20 MG/5 ML VIAL ONE; +GASTROGRAFIN 30 ML BOT ONE; +Iopamidol-370 76% 500 ML 1 ML ONE; -Lidocaine 1% PF 5 ML VIAL ONE; -Metoclopramide HCl 10 MG/2 ML VIAL ONE; -Ondansetron PF 4 MG/2 ML Vial ONE; -PROPOFOL 200 MG/20 ML VIAL ONE
[2022-02-04 18:10] LABS: #Eosinphils 0.2 thou/uL (0.0-0.7); #Lymphocytes 1.6 thou/uL (1.20-3.40); #Monocytes 0.5 thou/uL (0.11-0.59); #Neutrophils 6.5 thou/uL (1.40-6.50); %Basophils 0.3 % (0.0-1.0); %Eosinophils 2.2 % (0.0-10.0); %Lymphocytes 18.2 % (21.0-51.0); %Monocytes 5.4 % (0.0-10.0); %Neutrophils 73.9 % (42.0-75.0); Hemoglobin 13.5 g/dL (12.0-16.0); Mean Corpuscular HGB CONC 32.6 g/dL (32.0-36.0); Mean Corpuscular Hemoglobin 28.8 pg (27.0-31.0); Mean Corpuscular Volume 88.2 fL (78.0-98.0); Mean Platelet Volume 6.3 fL (7.4-10.4); Platelet Count 354 thou/uL (130-400); RBC Distribution Width 12.5 % (11.5-14.5); Red Blood Cell (RBC) Count 4.68 mill/uL (4.20-5.40); White Blood Cell (WBC) Count 8.8 thou/uL (4.8-10.8)
[2022-02-04] MEDS ORDERED: Ondansetron PF 4 MG/2 ML Vial ONE (18:15)
[2022-02-04] MEDS ORDERED: Morphine 4 MG/ML VIAL ONE ×2 (18:15→19:25)
[2022-02-04 18:43] LABS: ALT (SGPT) 180 U/L (8-55); AST (SGOT) 93 U/L (5-34); Albumin 4.1 g/dL (3.5-5.0); Alkaline Phosphatase 87 U/L (40-110); Anion Gap 15 mmol/L (10-20); BUN (Urea Nitrogen) 8 mg/dL (7.0-18.7); Bilirubin, Total 0.6 mg/dL (0.2-1.2); Calc. Creatinine Clearance 0 mL/min (70-130); Calcium 9.6 mg/dL (7.8-10.44); Carbon Dioxide 25 mmol/L (22-29); Chloride 100 mmol/L (98-107); Globulin 3.3 g/dL (2.4-3.5); Glucose 120 mg/dL (70-105); Lipase 5 U/L (8-78); Potassium 4.5 mmol/L (3.5-5.1); Protein, Total 7.4 g/dL (6.0-8.3); Sodium 135 mmol/L (136-145)
== END 2022-02-04 20:06 | disposition home or self-care (01) ==
LOC: ERS 17:40
DX: R10.84 Generalized abdominal pain (principal); G89.18 Other acute postprocedural pain; E11.40 Type 2 diabetes mellitus with diabetic neuropathy, unspecified; M19.90 Unspecified osteoarthritis, unspecified site; E78.00 Pure hypercholesterolemia, unspecified; Z98.84 Bariatric surgery status; F17.210 Nicotine dependence, cigarettes, uncomplicated
CPT/HCPCS: 36415; 74177; 80053; 83605; 83690; 85025; 96374; 96375; 96376; J2270; J2405; Q9963; Q9967

== ENCOUNTER 2022-09-29 11:47 | Emergency (ER) | payer OTHER ==
[2022-09-29] MEDS ORDERED: Ondansetron PF 4 MG/2 ML Vial ONE (12:12)
[2022-09-29] MEDS ORDERED: Morphine 4 MG/ML VIAL ONE (12:12)
[2022-09-29 12:45] LABS: #Basophils 0.1 thou/uL (0.0-0.2); #Eosinphils 0.1 thou/uL (0.0-0.7); #Lymphocytes 2.9 thou/uL (1.20-3.40); #Monocytes 0.4 thou/uL (0.11-0.59); #Neutrophils 2.6 thou/uL (1.40-6.50); %Basophils 1.1 % (0.0-1.0); %Eosinophils 1.3 % (0.0-10.0); %Lymphocytes 47.4 % (21.0-51.0); %Monocytes 7.2 % (0.0-10.0); %Neutrophils 43.1 % (42.0-75.0); Hemoglobin 14.9 g/dL (12.0-16.0); Mean Corpuscular Hemoglobin 28.5 pg (27.0-31.0); Mean Platelet Volume 7.4 fL (7.4-10.4); Platelet Count 293 10x3/uL (130-400); Red Blood Cell (RBC) Count 5.24 mill/uL (4.20-5.40)
[2022-09-29 13:20] LABS: BHCG - Serum Negative (NEGATIVE); Pregs Control Background? CLEAR/WHITE (CLR/WHITE); Pregs Control Bar Appear? YES (CONTROL BAR)
[2022-09-29 13:27] LABS: ALT (SGPT) 11 U/L (8-55); AST (SGOT) 16 U/L (5-34); Albumin 3.7 g/dL (3.5-5.0); Alkaline Phosphatase 75 U/L (40-110); Anion Gap 14 mmol/L (10-20); BUN (Urea Nitrogen) 10 mg/dL (7.0-18.7); Bilirubin, Total 0.8 mg/dL (0.2-1.2); CK (CPK) 109 U/L (29-168); Calc. Creatinine Clearance 0 mL/min (70-130); Calcium 8.8 mg/dL (7.8-10.44); Carbon Dioxide 23 mmol/L (22-29); Chloride 102 mmol/L (98-107); Estimated GFR 80; Globulin 2.4 g/dL (2.4-3.5); Glucose 109 mg/dL (70-105); Lipase 7 U/L (8-78); Potassium 4.2 mmol/L (3.5-5.1); Protein, Total 6.1 g/dL (6.0-8.3); Sodium 135 mmol/L (136-145)
[2022-09-29] MEDS ORDERED: Pantoprazole 40 MG VIAL ONE (13:30)
[2022-09-29] MEDS ORDERED: Iopamidol-370 76% 500 ML 1 ML ONE (16:04)
== END 2022-09-29 14:45 | disposition home or self-care (01) ==
LOC: ERS 11:47
DX: R10.84 Generalized abdominal pain (principal); E03.9 Hypothyroidism, unspecified; E11.9 Type 2 diabetes mellitus without complications; E78.00 Pure hypercholesterolemia, unspecified; F17.210 Nicotine dependence, cigarettes, uncomplicated
CPT/HCPCS: 74177; 80053; 82550; 83690; 84484; 84703; 85025; 93005; 96361; 96374; 96375; C9113; J2270; J2405; Q9967

== ENCOUNTER 2022-11-30 08:34 | Outpatient (CLI) | payer OTHER, MEDICAID ==
[2022-11-30] MEDS ORDERED: Iopamidol 370 76% 100 ML VIAL ONE (10:32)
== END 2022-11-30 08:35 | disposition home or self-care (01) ==
LOC: CT 08:34
PROVIDERS: ATTEND Surgery
DX: K43.9 Ventral hernia without obstruction or gangrene (principal)
CPT/HCPCS: 74177; Q9967